=== PATIENT | female | born 1960 | race Caucasian/White ===

== ENCOUNTER 2025-06-14 06:37 | Day surgery (SDC) | payer BC ==
[~2025-06-14 06:37] MED LIST: Propofol 200 MG/20 ML SDV ONE; Sodium Chloride 0.9% 10 ML Syringe FLUSH PRN; Sodium Chloride 0.9% 10 ML Syringe FLUSH SCH
[2025-06-14] MEDS: Lactated Ringers 1,000 ML IV SCH (06:55)
[2025-06-14] MEDS ORDERED: Propofol 200 MG/20 ML SDV ONE (07:16)
[2025-06-14] MEDS ORDERED: Ondansetron 4 MG/2 ML SDV ONE (07:22)
[2025-06-14 08:33] VITALS: BP 120/60; PULSE 64
== END 2025-06-14 08:08 | disposition home or self-care (01) ==
LOC: JD.SDS 06:37
PROVIDERS: ATTEND Surgery
DX: Z12.11 Encounter for screening for malignant neoplasm of colon (principal); R19.5 Other fecal abnormalities; I10 Essential (primary) hypertension; K21.00 Gastro-esophageal reflux disease with esophagitis, without bleeding; L23.2 Allergic contact dermatitis due to cosmetics; Z79.899 Other long term (current) drug therapy
CPT/HCPCS: 45378; J2405; J2704; J7120; 00811